=== PATIENT | female | born 2005 ===

== ENCOUNTER 2025-07-07 08:12 | Emergency (ER) | payer BC, SELFPAY ==
[2025-07-07 08:13] VITALS: BP 129/91
[2025-07-07 08:44] VITALS: BP 131/114
[2025-07-07 09:08] VITALS: BP 132/104
[2025-07-07] MEDS: MORPHINE SULFATE 2 MG IV (09:09)
[2025-07-07] MEDS: OMNIPAQUE 50 ML PO (09:09)
[2025-07-07] MEDS: ZOFRAN 4 MG IV (09:09)
[2025-07-07] MEDS: NSS 1000 IV (09:10)
--- NOTE | 2025-07-07 09:15 | ED.GENMED ---
Addendum entered and electronically signed by Jaylon Holland PA-C 07/10/25 08:59:
Patient contacted and notified of positive E. coli with Shigella toxin positive results. Patient notes that he is feeling much better and symptoms are mostly resolved at this time. Has scheduled outpatient GI follow-up.
Original Note:
History of Present Illness
General
Chief Complaint: Abdominal Symptoms
Source: patient and family
Time Seen by Provider: 07/07/25 08:21
History of Present Illness
History of Present Illness:
19-year-old female, identifies as male, presenting to the emergency department for evaluation of GI upset over the last week, symptoms initially started shortly after eating dinner with grandparents noting he had steak for dinner but that nobody
else at dinner that night has symptoms. Patient initially started with loose stool going about 3-4 times per day, this shortly became bloody stool and today with nausea and vomiting. Blood is described to be intermixed with the stool and bright
red in color. There is some mild abdominal cramping with the pain described to be an intermittent kicked to the abdomen every 10 to 15 minutes. Patient did not take anything for the symptoms prior to arrival. No history of similar. Otherwise
denying any urinary symptoms, lightheadedness, dizziness, chest pain or shortness of breath. Social history was noted for very infrequent alcohol use. No recent travel or recent antibiotics. Family history was noncontributory for any inflammatory
bowel disease.
Past History
Past History
ED Past Medical History: None
ED Past Surgical History: Other (Double mastectomy)
Social History
Tobacco: Non-smoker
Alcohol: Occasional
Drug: None
Personal: Single
Living: with family
Employment: Student
Review of Systems
Review of Systems
All Other Systems: ROS reviewed and negative except as documented in HPI and ROS
Phy Exam
Physical Exam
Physical Exam:
GENERAL: Alert , in no apparent distress
EYE: clear conjunctiva b/l
HEAD: NCAT
ENT: o/p clr, mmm.
CARDIAC: Regular rate and rhythm .
LUNGS: Clear breath sounds bilaterally, no acute respiratory distress, no wheezes/rales/rhonchi
ABDOMEN: Soft, mild epigastric tenderness, no r/g, no cvat
NEUROLOGICAL: Alert and oriented
SKIN: Warm and dry, skin intact.
MUSCULOSKELETAL: No edema, well perfused.
PSYCH: Normal and appropriate interaction.
Scores
Heart Failure Risk
Heart Failure Risk Score: Not Applicable
Heart Score for Chest Pain Patients
STEMI patient?: Not applicable
Withdrawal Assessment of Alcohol
Withdrawal Assessment Completed?: Not applicable
Course
Orders/Labs/Results
Orders:
Orders
07/07/25 08:40
CT Abd/pel W Iv And Oral Contr Urgent
Comment:
Reason For Exam: abd pain, bloodied diarrhea, vomiting
Iohexol [Omnipaque] See Protocol PO NOW STA
Test Result ONCE
07/07/25 08:41
0.9% Sodium Chloride 1000 ml [Nss] 1,000 ml IV BOLUS
Morphine Sulfate 2 mg IV NOW STA
Ondansetron Injectable [Zofran] 4 mg IV NOW STA
07/07/25 09:08
Complete Blood Count/With Diff Urgent
Comprehensive Metabolic Panel Urgent
HCG, Serum Qualitative Screen Urgent
Lipase Urgent
07/07/25 12:23
Urinalysis Reflex To Culture Urgent
Date Specimen was Collected: 07/07/25
Time Specimen was Collected: 12:21
Urine Microscopic Reflex Cult Urgent
STOOL [C difficile Antigen & Toxins] Urgent
KASIA Source: Feces/Stool
Specimen Description:
Date Specimen was Collected: 07/07/25
Time Specimen was Collected: 12:21
Stool Culture Urgent
KASIA Source: Feces/Stool
Specimen Description:
Date Specimen was Collected: 07/07/25
Time Specimen was Collected: 12:21
Urine Culture Urgent
KASIA Source: U
Specimen Description:
Date Specimen was Collected: 07/07/25
Time Specimen was Collected: 12:
Abnormal Lab Results
07/07/25 07/07/25
09:08 12:23
WBC 14.4 H 10^3/uL
(4.8-10.8)
Hgb 11.2 L g/dL
(12.0-16.0)
Hct 36.2 L %
(37.0-47.0)
MCV 72.1 L fL
(81.0-99.0)
MCH 22.3 L pg
(27.0-31.0)
MCHC 30.9 L g/dL
(33.0-37.0)
RDW 15.4 H %
(11.5-14.5)
Plt Count 419 H 10^3/uL
(130-400)
Abs Immat Gran (auto) 0.1 H 10^3/uL
(0-0.05)
Absolute Neuts (auto) 11.6 H 10^3/uL
(1.4-6.5)
Absolute Monos (auto) 0.9 H 10^3/uL
(0.1-0.6)
Immature Gran % 0.7 H %
(0-0.5)
Neutrophils % 81.1 H %
(42.2-75.2)
Lymphocytes % 11.4 L %
(20.5-51.1)
BUN 6 L mg/dl
(7-17)
Glucose 104 H mg/dl
(70-99)
Leukocyte Esterase Rfl 1+ A
(Negative)
Urine Bacteria (Reflex) Few A
(Negative)
07/07/25 09:08
07/07/25 09:08
Vital Signs
Initial and Last Documented VS:
Initial Vital Signs
Temp Pulse Resp BP Pulse Ox
98.5 F 112 18 129/91 99
07/07/25 08:13 07/07/25 08:13 07/07/25 08:13 07/07/25 08:13 07/07/25 08:13
Last Documented Vital Signs
Temp Pulse Resp BP Pulse Ox
98.5 F 74 12 123/76 99
07/07/25 08:13 07/07/25 11:00 07/07/25 11:00 07/07/25 11:00 07/07/25 11:00
MDM/Problems Addressed
Differential Diagnosis Includes:
Colitis
IBS
UC
Crohn's
Infectious diarrhea
C. difficile colitis
Electrolyte imbalance
Hemorrhoids
MDM/Problems Addressed:
19-year-old female that identifies as male presenting to the ER for evaluation of abdominal pain, diarrhea, now with bloody stools, nausea and vomiting. No hematemesis. Mild tachycardia in triage noted, improved at time of my exam, patient
otherwise hemodynamically stable and overall fairly well-appearing. Given duration of the illness combined with gradually worsening symptoms will obtain labs and CT imaging. Symptom relief with fluids, Zofran and morphine. Avoiding Toradol given
the reported bloody stools. Patient did show image of the bloody stools and there was bright red blood intermixed with stool within the toilet. Disposition pending.
*Pulse Oximetry
SaO2: 99
Oxygen Mode of Delivery: Room air
Patient hypoxic: no
*Critical Care Note
Total Time (30-74mins, 75-104mins- exclusive of procedures): Not Applicable
Patient Management
Discussion with other providers: Launch Manager
Escalation/DeEscalation of care consider admission/obs:
Patient's symptoms improved following medications and fluids. CT findings noted for severe acute colitis of the ascending and transverse colon. Stool studies were negative for C. difficile raising my suspicion for inflammatory bowel disease.
Patient does feel comfortable being discharged home. Given the CT findings combined with patient's symptoms I did notify on-call GI team as well as the GI front elevator operator to help expedite an outpatient follow-up. Patient and family are aware of return
precautions. Stable for discharge home otherwise.
ED Attending Note
-
Portions of this chart may have been created with voice recognition software.� Occasional wrong word or��sound alike� substitutions may have occurred due to the inherent limitations of voice recognition software.
Discharge Plan
Departure
Patient Disposition: Home (Routine Discharge)
Date of Disposition: 07/07/25
Time of Disposition: 12:55
Patient with high blood pressure during this ER visit?: Yes
Discharge Problem:
Colitis
Instructions: Colitis (DC)
Referrals:
Celso Fragoso MD [Active, Gastroenterology]
James Guzman CRNP [Family Provider, Internal Medicine]
Interventions
Interventions:
*Risk Screen - Suicide Last Done: 07/07/25 08:13
*General Assessment Last Done: 07/07/25 08:13
*Neglect/Abuse Screening Last Done: 07/07/25 08:13
Discharge Date and Time
Print Language: [id number]
[2025-07-07 10:00] VITALS: BP 121/75
[2025-07-07 10:03] LABS: Hematocrit 36.2 % (37.0-47.0); Hemoglobin 11.2 g/dL (12.0-16.0); Mean Corp Hgb Conc. 30.9 g/dL (33.0-37.0); Mean Corpuscular Volume 72.1 fL (81.0-99.0); Nucleated Red Blood Cells % 0 %; Platelet Count 419 10^3/uL (130-400); Red Cell Dist. Width 15.4 % (11.5-14.5)
[2025-07-07 10:30] LABS: HCG, Serum Qualitative Screen Negative
[2025-07-07 10:31] LABS: ALT (SGPT) 17 U/L (0-35); AST (SGOT) 19 U/L (14-36); Albumin 4.3 g/dl (3.5-5.0); Alkaline Phosphatase 79 U/L (38-126); Blood Urea Nitrogen 6 mg/dl (7-17); Calcium 9.4 mg/dl (8.4-10.2); Carbon Dioxide 24 mmol/L (22-30); Chloride 107 mmol/L (98-107); Glucose 104 mg/dl (70-99); Lipase 30 U/L (23-300); Potassium 4.0 mmol/L (3.5-5.1); Sodium 139 mmol/L (135-145); Total Protein 6.8 g/dl (6.3-8.2); eGFR > 60.00
[2025-07-07 11:00] VITALS: BP 123/76
[2025-07-07 12:48] LABS: Urine Character Clear (Clear)
[2025-07-07 13:45] LABS: Urine Red Blood Cell 0-2 /HPF (0-2); Urine Squamous Cell 0-2 /LPF (Few)
== END 2025-07-07 13:00 | disposition home or self-care (01) ==
LOC: EMR 08:12
PROVIDERS: Physician Assistant Medical; EMERGENCY PHYSICIAN Emergency Medicine; FAMILY PHYSICIAN Nurse Practitioner Adult Health
DX: K52.9 Noninfective gastroenteritis and colitis, unspecified (principal); R03.0 Elevated blood-pressure reading, without diagnosis of hypertension
CPT/HCPCS: 99284; 96375; 96361; 96374; 74177; 80053; 81003; 81015; 83690; 84703; 85025; 87045; 87046; 87077; 87086; 87324; 87427; 87449; Q9967